=== PATIENT | male | born 1990 | race Native Hawaiian/Other Pacific Islander ===

== ENCOUNTER 2017-08-02 16:21 | Emergency (ER) | payer OTHER ==
[~2017-08-02] VITALS: Ht 170.2 cm; Wt 72.6 kg
[2017-08-02 17:19] LABS: PLATELET COUNT 287 K/uL (142-355)
[2017-08-02 17:27] LABS: POTASSIUM 3.8 mmol/L (3.6-5.2)
== END 2017-08-02 22:00 | disposition short-term general hospital (02) ==
LOC: ED 16:21
DX: K35.80 Unspecified acute appendicitis (principal)
CPT/HCPCS: 36415; 80053; 82150; 83690; 85027; 96361; 96365; 99285; J2543; Q9963

== ENCOUNTER 2017-08-02 22:05 | Outpatient (CLI) | payer OTHER | END 2017-08-02 23:18 | disposition short-term general hospital (02) | LOC: AMB 22:05 | DX: K35.89 Other acute appendicitis (principal) | CPT/HCPCS: A0425; A0427 ==